=== PATIENT | male | born 1990 | race African-American/Black ===

== ENCOUNTER 2021-10-04 02:04 | Emergency (ER) | payer SELFPAY ==
[2021-10-04] MEDS ORDERED: predniSONE 20 MG Tab PO STA (02:42)
== END 2021-10-04 02:53 | disposition home or self-care (01) ==
LOC: JD.ED 02:04
DX: J30.9 Allergic rhinitis, unspecified (principal); I10 Essential (primary) hypertension; Z91.09 Other allergy status, other than to drugs and biological substances
CPT/HCPCS: 99283; J7512